=== PATIENT | female | born 1945 | race Caucasian/White ===

== ENCOUNTER 2021-05-19 13:11 | Emergency (ER) | payer MEDICARE, OTHER ==
[~2021-05-19 13:11] MED LIST: ALIGN4 MG PO; ASPIRIN EC81 MG PO; BACTRIM DS TAB1 EACH PO; BYSTOLIC10 M1 PO; D3 DOTS50 MCG PO; PLAVIX75 MG PO; PROTONIX 40MG T40 MG PO; SYNTHROID75 MCG PO; TRAMADOL HCL50 MG PO; ZETIA10 M1 PO
[2021-05-19 13:32] LABS: BASOPHIL 0.6 % (0-2); EOSINOPHIL 1.5 % (0-7); HCT 39.1 % (37.0-47.0); HGB 12.9 g/dl (12.5-16.0); LYMPHOCYTE 22.3 % (15-48); MCH 30.3 pg (25.0-31.0); MCV 91.8 fL (78.0-100.0); MONOCYTE 6.7 % (0-12); MPV 9.3 fL (6.0-9.5); NEUTROPHIL 68.3 % (41-80); NRBC 0; PLT 296 K/uL (150-400); RBC 4.26 M/uL (4.20-5.40); RDW 12.2 % (11.5-14.0); WBC 8.1 K/uL (4.0-10.5)
[2021-05-19 13:38] LABS: INR 0.95 (0.9-1.2); PTT 30.8 SECONDS (22.2-34.7)
[2021-05-19 13:49] LABS: LACTIC ACID 1.5 mmol/L (0.4-1.9)
[2021-05-19 13:52] LABS: ALBUMIN 3.1 g/dL (3.4-5.0); BILIRUBIN - TOTAL 0.4 mg/dL (0.2-1.0); BUN/CREAT RATIO (CALC) 10.3 RATIO; CREATININE 0.87 mg/dL (0.51-0.95); GLOBULIN (CALCULATION) 4.1 g/dL; POTASSIUM 4.1 mmol/L (3.5-5.1); TOTAL PROTEIN 7.2 g/dL (6.4-8.2)
[2021-05-19 14:08] LABS: BILIRUBIN NEGATIVE (NEGATIVE); BLOOD TRACE-INTACT Ery/uL (NEGATIVE); CLARITY CLEAR (CLEAR); COLOR YELLOW (YELLOW); GLUCOSE (U) NORMAL (NORMAL); LEUKOCYTES TRACE Leu/uL (NEGATIVE); NITRITE NEGATIVE (NEGATIVE); PROTEIN NEGATIVE (NEGATIVE); SPECIFIC GRAVITY <=1.005 (1.001-1.030); UROBILINOGEN 0.2 mg/dL (0.2-1.0); pH 6.5 (5.0-9.0)
== END 2021-05-19 14:41 | disposition other institution (70) ==
LOC: FER 13:11
PROVIDERS: Emergency Medicine
DX: I63.9 Cerebral infarction, unspecified (principal); R29.707 NIHSS score 7; Z20.822 Contact with and (suspected) exposure to COVID-19
CPT/HCPCS: 36415; 70450; 71045; 80053; 81001; 83605; 84443; 84484; 85025; 85610; 85730; 87040; 93005; J2997; U0002